=== PATIENT | female | born 1955 | race Caucasian/White ===

== ENCOUNTER 2021-01-10 13:16 | Emergency (ER) | payer MEDICARE, SELFPAY ==
--- NOTE | ~2021-01-10 | XR_ITS ---
EXAMINATION: XR shoulder LT min 2V DATE: 01/10/2021 13:48 INDICATION: Left shoulder pain post fall TECHNIQUE: AP internally and externally rotated, AP oblique externally rotated and transscapular Y vi ews of the left shoulder were obtained. COMPARISON: None FINDINGS: Comminuted fracture of the proximal left humerus. This includes a transverse fracture at the surgical neck with one shaft width anterior displacement and at least 3 cm proximal migration. There is an ad ditional fracture line across the base of the greater tuberosity. This fracture plane is not well pro filed but appears likely to have at least 1 cm posterolateral displacement. The humeral head is infer iorly subluxed relative to the glenoid with widening of the superior glenohumeral joint space suggest ing the presence of a joint effusion. No other fractures identified. Mild acromioclavicular osteoarth ritis. Visualized portions of the lungs are clear. IMPRESSION: Comminuted at least 2 part, likely 3 part fracture of the proximal left humerus. Reviewed, dictated and finalized at location A. IMPRESSION: Comminuted at least 2 part, likely 3 part fracture of the proximal left humerus .
--- NOTE | 2021-01-10 14:01 | ED.GENADULT ---
HPI - General Adult General Chief complaint: Extremity Injury, Upper Stated complaint: Lt shoulder injury Time Seen by Provider: 01/10/21 14:01 Source: patient and RN notes reviewed Mode of arrival: ambulatory Limitations: no limitations History of Present Illness HPI narrative: 65-year-old female presents with complaints of left shoulder pain after a fall prior to arrival. Erin reports walking in the parking when she fell landing on LT side injuring LT shoulder, breaking glasses, and hitting RT elbow. No treatment. Denies numbness or tingling. Hurts with movement of LUE. Denies radiating pain. No loss of mobility. No swelling. Exacerbating factor is movement. Relieving factor is rest. The dominant hand is the RIGHT HAND. Denies loss of consciousness, syncopal, dizziness, or seizure activities. Remains active. The patient reports she have not been diagnosed with COVID-19. The patient reports she received 1st COVID-19 vaccine 2 weeks ago. The patient reports she is not waiting for the results of a COVID-19 lab test. The patient reports she do not have fever, chills, weakness, or fatigue. The patient reports she do not have a new or worsening cough or shortness of breath. Denies chest pain. The patient reports she do not have any rhinorrhea, congestion, sore throat, loss of taste or smell, nausea, vomiting, abdominal pain, and diarrhea. Tolerating po intake well. Recent traveling from [facility] to here to visit family. Denies concerns for COVID-19 or exposures been home with limited outdoor exposure except for essential household needs and return home. At this time, patient is not suspected of having COVID-19. Some parts of this dictation were generated by voice recognition software and may contain typographical and/or grammatical inaccuracies. Related Data Home Medications Medication Instructions Recorded Confirmed Prevacid 01/10/21 enalapril maleate 01/10/21 fenofibrate 01/10/21 metformin 01/10/21 Allergies Allergy/AdvReac Type Severity Reaction Status Date / Time acetaminophen [From Vicodin] AdvReac Unknown Verified 01/10/21 13:32 hydrocodone [From Vicodin] AdvReac Unknown Verified 01/10/21 13:32 Review of Systems Review of Systems: Narrative: CONSTITUTIONAL: Denies fever, chills, sweats. EYES: Denies visual changes, redness, discharge. ENT: Denies rhinorrhea, congestion, sore throat, otalgia. CARDIOVASCULAR: Denies chest pain, palpitations, edema. RESPIRATORY: Denies dyspnea, wheezing, cough. GASTROINTESTINAL: Denies abdominal pain, nausea, vomiting, diarrhea. SKIN: Denies rash or itching. MUSCULOSKELETAL: Denies acute back pain or myalgia. Complains of LT shoulder pain. NEUROLOGIC: Denies numbness or focal weakness. PSYCHIATRIC: Denies anxiety or depression. All other systems reviewed & are unremarkable except as noted in HPI and below. [facility] Past Medical History Medical History (Updated 01/11/21 @ 00:32 by BONITA Hernandez) Asthma Bladder polyps history of removal per Erin Colon polyps history of removal per Erin Diabetes Endometriosis Glaucoma Grade I diastolic dysfunction History of gastroesophageal reflux (GERD) Hypercholesteremia Hypertension Postmenopausal Surgical History Surgical History (Updated 01/11/21 @ 00:32 by BONITA Hernandez) History of colonoscopy History of oophorectomy, unilateral Family History Family History (Updated 01/10/21 @ 17:41 by BONITA Hernandez) Father , Related to her asbestos Lung cancer Mother Carcinoma of colon Social History Social History (Updated 01/10/21 @ 17:42 by BONITA Hernandez) Smoking status: Former smoker Tobacco type: cigarettes Second hand tobacco smoke exposure: Yes Alcohol intake: current Substance use: never Substance use type: does not use Living arrangements: with family Occupation/Education: retired Gender identity (if verbalized by
[2021-01-10] MEDS: KETOROLAC (*BKC) 60 MG/2 ML VIAL IM (14:24)
[2021-01-10 14:53] VITALS: BP 122/68; PULSE 78; RESP 16; TEMP 36.4; O2SAT 98
--- NOTE | 2021-01-10 15:18 | PC.NURSE ---
Shoulder immobilizer applied. Patient tolerated well. Ramsay better after applied.
== END 2021-01-10 15:21 | disposition home or self-care (01) ==
PROVIDERS: Emergency Provider Nurse Practitioner Family
DX: S42.352A Displaced comminuted fracture of shaft of humerus, left arm, initial encounter for closed fracture (principal); W10.9XXA Fall (on) (from) unspecified stairs and steps, initial encounter; F17.210 Nicotine dependence, cigarettes, uncomplicated; J45.909 Unspecified asthma, uncomplicated; N80.9 Endometriosis, unspecified; I10 Essential (primary) hypertension; E78.00 Pure hypercholesterolemia, unspecified; K21.9 Gastro-esophageal reflux disease without esophagitis; E11.39 Type 2 diabetes mellitus with other diabetic ophthalmic complication; H40.9 Unspecified glaucoma; H42 Glaucoma in diseases classified elsewhere
CPT/HCPCS: 73030; 96372; 99214; A4565; G0463; J1885